=== PATIENT | male | born 1995 | race African-American/Black ===

== ENCOUNTER 2017-12-30 13:57 | Emergency (ER) | payer OTHER ==
[~2017-12-30] VITALS: Ht 172.7 cm; Wt 69.1 kg
[2017-12-30 14:02] VITALS: BP 146/88; PULSE 74; TEMP 99
== END 2017-12-30 16:53 | disposition home or self-care (01) ==
LOC: COL.ER 13:57
DX: Z20.2 Contact with and (suspected) exposure to infections with a predominantly sexual mode of transmission (principal)
CPT/HCPCS: J0696